=== PATIENT | male | born 1965 ===

== ENCOUNTER 2018-10-08 11:09 | Emergency (ER) | payer OTHER ==
[2018-10-08 11:15] VITALS: BMI 28.8
--- NOTE | 2018-10-08 11:38 | ED PDOC ---
Arrival/HPI - General Historian: Patient, Spouse - History of Present Illness Narrative History of Present Illness (Text): Patient is a 53 yr old male with PMH of hypertension, hyperlipidemia, diabetes, osteoarthritis and Luekocytosis of unknown origin who presents to the [facility] Emergency department with complaining of intermittent chest pain associated with cough, congestion, fevers and chills over the past 2 days. patient states that his cough has been productive of yellow sputum. he did not receive a flu shot this year. He otherwise denies JUÁREZ, dizziness, neck pain, arm pain, diaphoresis, shortness of breath, abdominal pain, and extremity pain/weakness. 10/08/18 11:32 Time/Duration: Prior to Arrival, < week (2 days) <Jazmin Collins - Last Filed: 10/08/18 13:22> <Naty Leach - Last Filed: 10/08/18 14:51> - General Chief Complaint: Chest Pain Time Seen by Provider: 10/08/18 11:14 Past Medical History - Provider Review Nursing Documentation Reviewed: Yes - Infectious Disease Hx of Infectious Diseases: None - Cardiac Hx Hypertension: Yes - Endocrine/Metabolic Hx Diabetes Mellitus Type 2: Yes - Hematological/Oncological Other/Comment: Leukocytosis - Psychiatric Hx Substance Use: No <Jazmin Collins - Last Filed: 10/08/18 13:22> Family/Social History - Physician Review Nursing Documentation Reviewed: Yes Family/Social History: Unknown Family HX Smoking Status: Never Smoked Hx Alcohol Use: No Hx Substance Use: No <Jazmin Collins - Last Filed: 10/08/18 13:22> Allergies/Home Meds <Jazmin Collins - Last Filed: 10/08/18 13:22> <Naty Leach - Last Filed: 10/08/18 14:51> Allergies/Adverse Reactions: Allergies No Known Allergies Allergy (Verified 10/08/18 11:15) Review of Systems - Physician Review All systems were reviewed & negative as marked: Yes - Review of Systems Constitutional: Fevers. absent: Fatigue Respiratory: Cough, Sputum. absent: SOB, Wheezing Cardiovascular: Chest Pain. absent: Palpitations, Calf Pain, Syncope Gastrointestinal: absent: Abdominal Pain, Nausea, Vomiting Musculoskeletal: absent: Back Pain, Neck Pain Skin: absent: Rash, Laceration Neurological: absent: Headache, Dizziness, Speech Changes Endocrine: absent: Diaphoresis <CollinsJazmin walden - Last Filed: 10/08/18 13:22> Physical Exam Vital Signs Reviewed: Yes Temperature: Afebrile Blood Pressure: Normal Pulse: Regular Respiratory Rate: Normal Appearance: Positive for: Well-Appearing, Non-Toxic, Comfortable Pain Distress: None Mental Status: Positive for: Alert and Oriented X 3 - Systems Exam Head: Present: Atraumatic, Normocephalic Pupils: Present: PERRL Extroacular Muscles: Present: EOMI Mouth: Present: Moist Mucous Membranes Neck: Present: Normal Range of Motion Respiratory/Chest: Present: Clear to Auscultation, Good Air Exchange. No: Respiratory Distress, Accessory Muscle Use Cardiovascular: Present: Regular Rate and Rhythm, Normal S1, S2. No: Murmurs, Tachycardic Abdomen: Present: Normal Bowel Sounds. No: Tenderness, Distention, Peritoneal Signs Upper Extremity: Present: Normal Inspection. No: Cyanosis, Edema Lower Extremity: Present: Normal Inspection. No: Edema, CALF TENDERNESS Neurological: Present: GCS=15, CN II-XII Intact, Speech Normal Skin: Present: Warm, Dry, Normal Color. No: Rashes, Diaphoretic Psychiatric: Present: Alert, Oriented x 3, Normal Insight, Normal Concentration <Jazmin Collins - Last Filed: 10/08/18 13:22> Vital Signs Temp Pulse Resp BP Pulse Ox 10/08/18 13:13 88 18 141/89 98 10/08/18 11:35 98.1 F 79 16 99 <Naty Leach A - Last Filed: 10/08/18 14:51> Medical Decision Making ED Course and Treatment: Impression: 53 yr old male PMh hypertension, hyperlipidemia, diabetes, Leukocytosis of unknown origin and OA presenting with Chest pain associated with cough x 2 days Plan: Toradol CBC CMP Chest X-ray troponin x1 reassess and dispo 10/08/18 11:42 - Lab Interpretations Lab Results: 10/08/18 11:45 10/08/18 11:45 Lab Results 10/08/18 11:45: Sodium 139, Potassium 3.9, Chloride 103, Carbon Dioxide 25, Anion Gap 15, BUN 14, Creatinine 0.7 L, Est GFR ( Amer) > 60, Est GFR (Non-Af Amer) > 60, Random Glucose 142 H, Calcium 9.9, Troponin I < 0.01 10/08/18 11:45: WBC 12.5 H, RBC 5.22, Hgb 14.1, Hct 42.0, MCV 80.5, MCH 27.0, MCHC 33.6, RDW 13.3, Plt Count 293, MPV 8.8, Gran % 79.4 H, Lymph % (Auto) 7.5 L , Dawson % (Auto) 10.7 H, Eos % (Auto) 2.1, Baso % (Auto) 0.3, Gran # 9.95 H, Lymph # (Auto) 0.9 L, Dawson # (Auto) 1.3 H, Eos # (Auto) 0.3, Baso # (Auto) 0.04 I have reviewed the lab results: Yes Interpretation: Abnormal lab values - RAD Interpretation Narrative RAD Interpretations (Text): 10/08/18 13:23 Radiology Results Chest X-Ray 10/08/18 11:41 IMPRESSION: No active disease. <Jazmin Collins - Last Filed: 10/08/18 13:22> ED Course and Treatment: 10/08/18 14:41 Patient seen by resident and then evaluated by me. EKG shows NSR at 78bpm with non-specific st changes. Trop x 1 negative. Patient presenting with chest pain only when coughing, myalgias, non-productive cough and chills x 2 days. Symptoms consistnet with uri. Known history of leukocystosis and instructed to again follow-up with Dr. Washington. Aware of abnormal ekg with no prior for comparison and need to follow-up with cardiology. Cxray and flu negative. No exertional symptoms and no shortness of breath. 10/08/18 14:43 10/08/18 14:51 - Lab Interpretations Lab Results: Troponin I < 0.01 ng/mL 10/08/18 11:45 - RAD Interpretation Radiology Orders: 10/08/18 11:41 CHEST TWO VIEWS (PA/LAT) [RAD] Stat - Medication Orders Current Medication Orders: Discontinued Medications Ketorolac Tromethamine (Toradol) 30 mg IVP STAT STA Stop: 10/08/18 11:42 Last Admin: 10/08/18 13:21 Dose: 30 mg MAR Pain Assessment Document 10/08/18 13:21 HN (Rec: 10/08/18 13:22 HN [id number]) Pain Reassessment Is this a pain reassessment? No Sleep Is patient sleeping during reassessment? No Presence of Pain Presence of Pain Yes Pain Scale Used Protocol: PSCALES Pain Scale Used Numeric Location Pain Location Body Site Chest IVP Administration Document 10/08/18 13:21 HN (Rec: 10/08/18 13:22 HN [id number]) Charges for Administration # of IVP Administrations 1 <Naty Leach - Last Filed: 10/08/18 14:51> Disposition/Present on Arrival - Present on Arrival Any Indicators Present on Arrival: No History of DVT/PE: No History of Uncontrolled Diabetes: No Urinary Catheter: No History of Decub. Ulcer: No History Surgical Site Infection Following: None - Disposition Have Diagnosis and Disposition been Completed?: Yes Disposition Time: 13:25 Patient Plan: Discharge <Jazmin Collins - Last Filed: 10/08/18 13:22> - Present on Arrival Any Indicators Present on Arrival: No - Disposition Have Diagnosis and Disposition been Completed?: Yes <Naty Leach - Last Filed: 10/08/18 14:51> - Disposition Diagnosis: URI with cough and congestion, Leukocytosis, Abnormal EKG Disposition: HOME/ ROUTINE Patient Problems: Current Active Problems Problem Status Onset URI with cough and congestion Acute Leukocytosis Acute Abnormal EKG Acute Condition: STABLE Discharge Instructions (ExitCare): Viral Upper Respiratory Infection, Adult (DC) Additional Instructions: Upon discharge please follow up with your primary care physician within 3-5 days. Please follow up with Dr. Washington for your persistent leukocytosis within 3-5 days of discharge Please follow up with Dr. Darius Rodriguez, Document Management Analyst within 3-5 days of discharge to discuss your EKG results further. You have been given a prescription: Tesalon Perles 100 mg please take 1 by mouth every 6 hours as needed for cough If your symptoms persist/worsen or if new symptoms appear please proceed to the nearest Emergency department immediately for evaluation. Prescriptions: Benzonatate [Tessalon Perles] 100 mg PO Q6 PRN #30 sgl PRN Reason: Cough Referrals: Jhony Lanza MD [Primary Care Provider] - Follow up with primary Mony Washington MD [Staff Provider] - Follow up with primary Darius Rodriguez MD [Staff Provider] - Follow up with primary Forms: [employer] (Emirati)
[2018-10-08 12:53] LABS: BASO # 0.04 K/mm3 (0.0-2.0); BASO % 0.3 % (0.0-3.0); EOS # 0.3 (0.0-0.7); EOS % 2.1 % (1.5-5.0); GRAN # 9.95 (1.4-6.5); GRAN % 79.4 % (50.0-68.0); HEMOGLOBIN 14.1 g/dL (14.0-18.0); LYMPH # 0.9 (1.2-3.4); LYMPH % 7.5 % (22.0-35.0); MEAN CELL VOLUME 80.5 fl (80.0-105.0); MEAN CORPUSCULAR HGB CONC 33.6 g/dl (31.0-37.0); MEAN PLATELET VOLUME 8.8 fl (7.0-11.0); MONO # 1.3 (0.1-0.6); MONO % 10.7 % (1.0-6.0); RBC 5.22 10^6/uL (3.5-6.1); RED CELL DISTRIBUTION WIDTH 13.3 % (11.5-14.5); WHITE BLOOD COUNT 12.5 10^3/uL (4.5-11.0)
[2018-10-08 13:04] LABS: BLOOD UREA NITROGEN 14 mg/dL (7-21); CALCIUM 9.9 mg/dL (8.4-10.5); GFR NON-AFRICAN AMERICAN > 60
--- NOTE | 2018-10-08 13:11 | RAD ---
Date of service: 10/08/2018 HISTORY: fever,cough COMPARISON: No prior. TECHNIQUE: Chest PA and lateral FINDINGS: LUNGS: No active pulmonary disease. PLEURA: No significant pleural effusion identified. No pneumothorax apparent. CARDIOVASCULAR: No aortic atherosclerotic calcification present. Mild cardiomegaly no pulmonary vascular congestion. OSSEOUS STRUCTURES: No significant abnormalities. VISUALIZED UPPER ABDOMEN: Normal. OTHER FINDINGS: None. IMPRESSION: No active disease.
[2018-10-08 13:14] VITALS: RESP 18; O2SAT 98
[2018-10-08 13:15] LABS: TROPONIN I < 0.01 ng/mL
--- NOTE | 2018-10-08 14:53 | CARD ---
APPROVED REPORT Date of service: 10/08/2018 EKG Measurement Heart [id number] <Conclusion> Normal sinus rhythm Nonspecific T wave abnormality Abnormal ECG
[2018-10-08 16:46] VITALS: BP 119/69; PULSE 81; TEMP 98.6
== END 2018-10-08 16:46 | disposition home or self-care (01) ==
LOC: ED 11:09 → MERGE 11:09 → ED 16:46
DX: J06.9 Acute upper respiratory infection, unspecified (principal); R05 Cough; R94.31 Abnormal electrocardiogram [ECG] [EKG]; D72.829 Elevated white blood cell count, unspecified; E11.9 Type 2 diabetes mellitus without complications; E78.5 Hyperlipidemia, unspecified; I10 Essential (primary) hypertension
CPT/HCPCS: 71046; 80048; 84484; 85025; 87804; 93005; 96374; 99284; J1885